=== PATIENT | female | born 1955 | race Caucasian/White ===

== ENCOUNTER 2017-11-10 14:14 | Emergency (ER) | payer MEDICARE, OTHER ==
[~2017-11-10] VITALS: Ht 160 cm; Wt 67.1 kg
[~2017-11-10 14:14] MED LIST: ALBUTEROL INHALER; MOTRIN; PAXIL; TRAZ-289; [UNRECOGNIZED DRUG - OTHER]
[2017-11-10 14:20] VITALS: BP 186/111
--- NOTE | 2017-11-10 14:25 | NUR ---
PT AMBULATED TO BED 12
--- NOTE | 2017-11-10 14:34 | NUR ---
REPORT GIVEN TO GEREMIAS BRADSHAW
--- NOTE | 2017-11-10 14:35 | NUR ---
62 YO F TO ER FOR RIGHT FALNK PAIN X30 YRS WITH INCREASING PAIN IN LAST HR. PT STATES HX OF CHRONIC PAIN. PT STATES DEALING WITH RECENT LOSS OF SON AND MOTHER IN LONGTERM. PT STATES A LOSS OF APPITITE. DENIES N/V/D; SKIN IS PINK/WARM/DRY; AAOX4 WITH EVEN AND STEADY GAIT; LUNGS CLEAR BL; HR EVEN AND REGULAR; PT DENIES ANY FEVER, CP, SOB, OR COUGH AT THIS TIME; PATIENT STATES PAIN OF 10/10 AT THIS TIME; PATIENT POSITIONED FOR COMFORT; HOB ELEVATED; BEDRAILS UP X2; BED DOWN. ER MD MADE AWARE OF PT STATUS.
[2017-11-10] MEDS ORDERED: NACL 0.9% 1,000 ML IV SCH (15:03)
[2017-11-10] MEDS ORDERED: NACL 0.9% 1,000 ML IV ONE (15:05)
[2017-11-10 15:34] LABS: BASOPHILS % (AUTO) 0.5 % (0.0-2.0); EOSINOPHILS % (AUTO) 0.1 % (0.0-4.0); HEMATOCRIT 40.6 % (36-48); HEMOGLOBIN 13.9 g/dL (12.0-16.0); LYMPHOCYTES # (AUTO) 1.8 K/uL (2.5-16.5); LYMPHOCYTES % (AUTO) 29.5 % (20.5-51.1); MEAN CORPUSCULAR HEMOGLOBIN 32 pg (27-31); MEAN CORPUSCULAR HGB CONC 34 g/dL (33-37); MEAN CORPUSCULAR VOLUME 93.9 fL (80-94); MONOCYTES # (AUTO) 0.7 K/uL (0.8-1.0); MONOCYTES % (AUTO) 11.1 % (1.7-9.3); NEUTROPHILS # (AUTO) 3.6 K/uL (1.8-7.7); NEUTROPHILS % (AUTO) 58.8 % (42.2-75.2); PLATELET COUNT (AUTO) 224 K/uL (140-450); RED BLOOD CELL COUNT(AUTO) 4.32 MIL/uL (4.20-5.40); RED CELL DISTRIBUTION WIDTH 12.9 % (11.6-13.7); WHITE BLOOD COUNT (AUTO) 6.1 K/uL (4.8-10.8)
[2017-11-10 15:39] LABS: APPEARANCE,URINE CLEAR (CLEAR); BLOOD, URINE NEGATIVE (NEGATIVE); COLOR,URINE YELLOW (YELLOW); LEUKOCYTE ESTERASE ,URINE NEGATIVE (NEGATIVE); NITRITE, URINE NEGATIVE (NEGATIVE); UGLUCOSE NEGATIVE (NEGATIVE)
[2017-11-10] MEDS ORDERED: diphenhydrAMINE 50 MG/ML VIAL IVP ONE (15:40)
[2017-11-10 15:43] LABS: BARBITURATE, URINE NEG. ng/ml (NEG <=200); BENZODIAZEPINE, URINE POS. ng/mL (NEG <=200); CANNABINOID, URINE POS. ng/mL (NEG <=50); COCAINE, URINE NEG. ng/mL (NEG <=300); OPIATE, URINE NEG. ng/mL (NEG <=2000); PHENCYCLIDINE SCREEN,URINE NEG. ng/mL (NEG <=25)
[2017-11-10 15:53] LABS: BILIRUBIN,URINE NEGATIVE (NEGATIVE)
--- NOTE | 2017-11-10 16:00 | NUR ---
PT UP TO BATHROOM WITH A STEADY GAIT
[2017-11-10 16:23] LABS: ANION GAP 14.5 (8-16); ASPARTATE AMINOTRANSFERASE 22 U/L (15-37); CARBON DIOXIDE 26.3 mmol/L (21-32); CHLORIDE 98 mmol/L (98-107); GFR ARICAN-AMERICAN 72 mL/min (>90); GLUCOSE 99 mg/dL (74-106); POTASSIUM 3.8 mmol/L (3.5-5.1); SODIUM SERUM 135 mmol/L (136-145); TOTAL BILIRUBIN 0.6 mg/dL (0.0-1.0); UREA NITROGEN, BLOOD 21 mg/dL (7-18)
[2017-11-10 16:30] LABS: AMYLASE 79 U/L (25-115); LIPASE 118 U/L (73-393)
--- NOTE | 2017-11-10 16:32 | NUR ---
PT SPEAKING WITH FAMILY AT BEDSIDE IN NO APPARENT DISTRESS
[2017-11-10 17:25] VITALS: BP 148/51
--- NOTE | 2017-11-10 17:25 | NUR ---
Patient discharged with v/s stable. Written and verbal after care instructions given and explained. Patient alert, oriented and verbalized understanding of instructions. Ambulatory with steady gait. All questions addressed prior to discharge. ID band removed. Patient advised to follow up with PMD. Rx of VISTARIL given. Patient educated on indication of medication including possible reaction and side effects. Opportunity to ask questions provided and answered.
== END 2017-11-10 17:25 | disposition home or self-care (01) ==
LOC: MED 14:14
DX: F43.22 Adjustment disorder with anxiety (principal); E86.0 Dehydration; R10.9 Unspecified abdominal pain; J45.909 Unspecified asthma, uncomplicated; Z79.899 Other long term (current) drug therapy
CPT/HCPCS: 36415; 80053; 80305; 81003; 82150; 83690; 85025; 96360; 96361; 99285; G0482